=== PATIENT | female | born 1990 | race Caucasian/White ===

== ENCOUNTER 2021-09-28 19:05 | Emergency (ER) | payer MEDICAID ==
[~2021-09-28] VITALS: Ht 172.7 cm; Wt 64.0 kg
[2021-09-28] MEDS ORDERED: MORPHINE SULFATE 4 MG/ML CPJ (NOT FOR IM USE) IV STA (20:04)
[2021-09-28] MEDS ORDERED: SODIUM CHLORIDE 0.9% 1,000 ML IV ONE (20:15)
[2021-09-28 20:30] LABS: BASOPHILS % 0.2 % (0.0-2.0); EOSINOPHILS % 0.9 % (0.0-5.0); HEMATOCRIT. 35.8 % (36.0-48.0); HEMOGLOBIN. 12.2 g/dL (12.0-16.0); LYMPHOCYTES % 29.4 % (20.0-50.0); MEAN CORPUSCULAR VOLUME 90.5 fL (81.0-99.0); MEAN PLATELET VOLUME 7.9 fl (7.4-10.4); MONOCYTES % 7.6 % (2.0-8.0); NEUTROPHILS % 61.9 % (40.0-76.0); PLATELET 205 x1000/uL (130-400); RED BLOOD CELL COUNT 3.95 mill/uL (4.2-5.4); RED CELL DISTRIBUTION WIDTH 13.4 % (11.6-14.6)
[2021-09-28 20:42] LABS: CHLORIDE 111 mEq/L (98-107)
[2021-09-28 20:55] LABS: B-HCG QUANTITATIVE < 1 mIU/mL (<3)
[2021-09-28] MEDS ORDERED: IOHEXOL-300 100 ML BOTTLE ONE (22:04)
[2021-09-29 02:55] VITALS: BP 133/67
== END 2021-09-29 02:57 | disposition home or self-care (01) ==
LOC: EDBD 19:05 → ER 19:05
DX: R10.31 Right lower quadrant pain (principal); R31.0 Gross hematuria; N83.291 Other ovarian cyst, right side; N83.01 Follicular cyst of right ovary; N83.02 Follicular cyst of left ovary; N39.0 Urinary tract infection, site not specified
CPT/HCPCS: 36415; 74177; 76830; 76856; 80053; 84702; 85025; 99285; J2270; J7030; Q9967